=== PATIENT | female | born 1965 | race Caucasian/White ===

== ENCOUNTER 2021-08-30 13:24 | Outpatient (CLI) | payer SELFPAY ==
--- NOTE | 2021-08-30 | XR_ITS ---
WS: [id number] SCREENING DEXA SCAN [employer] CLINICAL INFORMATION: MENOPAUSAL AND PERIMENOPAUSAL DISORDERS COMPARISON: None. FINDINGS: The L1-L4 bone mineral density measures 1.105g/cm2. This corresponds to a T score score of -0.6 and Z score of -0.5. Left femoral neck bone mineral density measures 0.921 g/cm2. This corresponds to a T score of -0.7 an d Z score of -0.5. Right femoral neck bone mineral density measures 0.859 g/cm2. This corresponds to a T score -1.2of an d Z score of -1.0. Mean femoral neck bone mineral density measures 0.890 g/cm2. This corresponds to a T score of -0.9 an d Z score of -0.8. XR/XR DEXA axial skeleton* [id number] IMPRESSION: Osteopenia in the femoral necks. Normal bone mineralization lumbar spine. Patient's FRAX calculated 10 year probability for major osteoporotic fracture i s 6.3 % and osteoporotic hip fracture is 0.4%.
--- NOTE | 2021-08-30 | MM_ITS ---
WS: [id number] SCREENING 3D TOMOSYNTHESIS DIGITAL MAMMOGRAM WITH CAD HISTORY: SCREEN COMPARISON: None available. Bilateral CC and MLO views submitted. Computer aided detection analyzed. Breast composition: The breasts are heterogeneously dense, which may obscure small masses. Partially obscured lobulated soft tissue nodule against the posterior RIGHT chest wall measures 15 x 17 mm. Thi s is best seen on the CC projection just medial to the nipple line. On the lateral projection this is probably central to the nipple. MM/[place] [id number] IMPRESSION: BI-RADS: 0-Incomplete: Need additional imaging evaluation FOLLOW UP: Need Additional Imaging RIGHT breast: Spot compression views (CC and MLO). True ML. Ultrasound to follo w if abnormality persists.
== END 2021-08-30 13:25 | disposition home or self-care (01) ==
LOC: RAD 13:24
PROVIDERS: PCP Nurse Practitioner; Visit Provider Nurse Practitioner
DX: Z12.31 Encounter for screening mammogram for malignant neoplasm of breast (principal); Z78.0 Asymptomatic menopausal state; M85.88 Other specified disorders of bone density and structure, other site
CPT/HCPCS: 77063; 77067; 77080

== ENCOUNTER 2021-09-26 15:06 | Outpatient (CLI) | payer SELFPAY ==
--- NOTE | 2021-09-26 15:23 | MM_ITS ---
WS: [id number] ADDITIONAL VIEWS RIGHT MAMMOGRAM RIGHT BREAST ULTRASOUND HISTORY: ABNORMAL MAMMOGRAM COMPARISON: 08/30/2021 RIGHT MAMMOGRAM: Spot compression views and true ML. The asymmetry is still partially obscured along the posterior chest wall just medial to the central b reast on the CC projection. Not definitely seen on the lateral projections. RIGHT BREAST ULTRASOUND 2-D and color Doppler imaging submitted. Ultrasound is directed to the posterior RIGHT breast. At 1:00 there is a small cluster of cysts measu ring 1.2 x 0.6 x 1.1 cm. There are several small cysts, probably 3 very close to each other. One of t hese may contain a septation. These are benign in appearance. No increased vascularity. Concordant wi th the mammographic findings. MM/[place] [id number] IMPRESSION: BI-RADS: 2-Benign FOLLOW UP: 1 Year Follow-up Partially obscured mass seen on mammography corresponds to a cluster of benign cysts at 1:00.
== END 2021-09-26 15:07 | disposition home or self-care (01) ==
PROVIDERS: PCP Nurse Practitioner; Visit Provider Nurse Practitioner
DX: N60.01 Solitary cyst of right breast (principal); R92.8 Other abnormal and inconclusive findings on diagnostic imaging of breast
CPT/HCPCS: 76642; 77061

== ENCOUNTER 2024-09-10 13:40 | Outpatient (CLI) | payer SELFPAY ==
--- NOTE | 2024-09-10 13:40 | MM_ITS ---
WS: [id number] BILATERAL SCREENING DIGITAL TOMOSYNTHESIS MAMMOGRAM WITH CAD HISTORY: SCREENING COMPARISON: 09/26/2021, 08/30/2021 Bilateral CC and MLO views with tomosynthesis and synthetic mammography submitted. Computer aided detection analyzed. Breast composition: The breasts are heterogeneously dense, which may obscure small masses. No suspicious masses, microcalcifications or architectural distortion. Benign calcifications within the LEFT breast. MM/MM scr BI tomosynthesis [id number] IMPRESSION: BI-RADS: 2 - Benign FOLLOW UP: 1 Year Follow-up
== END 2024-09-10 13:41 | disposition home or self-care (01) ==
LOC: MOBLMAM 13:45
PROVIDERS: PCP Nurse Practitioner Family; Visit Provider Nurse Practitioner Family
DX: Z12.31 Encounter for screening mammogram for malignant neoplasm of breast (principal); R92.333 Mammographic heterogeneous density, bilateral breasts; R92.1 Mammographic calcification found on diagnostic imaging of breast
CPT/HCPCS: 77063; 77067